=== PATIENT | male | born 1975 ===

== ENCOUNTER 2017-07-20 18:33 | Emergency (ER) | payer SELFPAY ==
--- NOTE | 2017-07-20 19:12 | ED PDOC ---
HPI: General Adult Time Seen by Provider: 07/20/17 18:50 Chief Complaint (Nursing): Abdominal Pain History Per: Patient Additional Complaint(s): Pt. states since Tuesday morning he's had cough, congestion, fever, non-bloody vomiting and diarrhea, crampy diffuse abdominal pain. Reports he last took Motrin at 1200 today without relief along with pepto-bismol. Denies chest pain, SOB, hemoptysis, melena, hematemesis, hematochezia, BRBPR, sick contacts, recent travel. Past Medical History Reviewed: Historical Data, Nursing Documentation, Vital Signs Vital Signs: Last Vital Signs Temp 101.1 F H 07/20/17 18:46 Pulse 101 H 07/20/17 18:46 Resp 18 07/20/17 18:46 BP 120/79 07/20/17 18:46 Pulse Ox 100 07/20/17 19:16 - Medical History PMH: Anxiety, Depression, Hypercholesterolemia - Surgical History Surgical History: No Surg Hx - Family History Family History: States: No Known Family Hx - Immunization History Hx Tetanus Toxoid Vaccination: Yes (2011) Hx Influenza Vaccination: No Hx Pneumococcal Vaccination: No - Home Medications Home Medications: Ambulatory Orders Medication Instructions Recorded Acetaminophen/Codeine Phosph 1 tab PO Q6H PRN #20 tab 06/04/14 [Acetaminophen/Codeine 300 mg-15 mg] Cephalexin [Keflex] 500 mg PO BID #14 cap 06/06/15 Cephalexin [Keflex] 500 mg PO TID #21 tab 10/02/15 Ibuprofen [Motrin] 600 mg PO Q6 PRN #15 tab 10/02/15 Tobramycin 0.3% [Tobrex 0.3% Ophth 1 drop OD Q4 #1 bottle 05/05/17 Soln] - Allergies Allergies/Adverse Reactions: Allergies Allergy/AdvReac Type Severity Reaction Status Date / Time No Known Allergies Allergy Verified 07/20/17 18:42 Review of Systems ROS Statement: Except As Marked, All Systems Reviewed And Found Negative Constitutional: Positive for: Fever Respiratory: Positive for: Cough Gastrointestinal: Positive for: Nausea, Vomiting, Abdominal Pain, Diarrhea Physical Exam - Reviewed Nursing Documentation Reviewed: Yes Vital Signs Reviewed: Yes - Physical Exam Appears: Positive for: Well, Non-toxic, No Acute Distress Head Exam: Positive for: ATRAUMATIC, NORMAL INSPECTION, NORMOCEPHALIC Skin: Positive for: Normal Color, Warm. Negative for: Rash Eye Exam: Positive for: EOMI, Normal appearance, PERRL ENT: Positive for: Normal ENT Inspection. Negative for: Pharyngeal Erythema, Tonsillar Exudate, Tonsillar Swelling Neck: Positive for: Normal, Painless ROM Cardiovascular/Chest: Positive for: Regular Rate, Rhythm Respiratory: Positive for: CNT, Normal Breath Sounds Gastrointestinal/Abdominal: Positive for: Normal Exam, Bowel Sounds, Soft. Negative for: Tenderness Back: Positive for: Normal Inspection Extremity: Positive for: Normal ROM Neurologic/Psych: Positive for: Alert, Oriented. Negative for: Aphasia, Facial Droop - ECG O2 Sat by Pulse Oximetry: 100 - Progress ED Course And Treament: Labs ordered. Tylenol 975mg PO, IV NS bolus x 1, zofran 4mg IV ordered. Disposition - Clinical Impression Clinical Impression: Fever - Patient ED Disposition Is Patient to be Admitted: Transfer of Care (Signed out to Jenise BARNEY pending labs and final disposition.) - Disposition Disposition Time: 20:00 Condition: STABLE Forms: [employer] (Slovak)
[2017-07-20] MEDS ORDERED: Sodium Chloride 0.9% 1,000 ML IV STA (19:15)
[2017-07-20 20:09] LABS: VENOUS BLOOD GAS BASE EXCESS -0.6 mmol/L (0.0-2.0); VENOUS BLOOD GAS PCO2 43 mmHg (40-60); VENOUS BLOOD PH 7.37 (7.32-7.43)
[2017-07-20 20:26] LABS: BASO % 0.3 % (0.0-2.0); EOS # 0.3 K/uL (0.0-0.7); EOS % 2.8 % (0.0-4.0); HEMATOCRIT 44.9 % (35.0-51.0); LYMPH # 1.1 K/uL (1.0-4.3); MEAN CELL VOLUME 85.9 fl (80.0-94.0); MEAN CORPUSCULAR HEMOGLOBIN 28.8 pg (27.0-31.0); MEAN CORPUSCULAR HGB CONC 33.5 g/dL (33.0-37.0); MEAN PLATELET VOLUME 8.1 fl (7.2-11.7); MONO # 0.8 K/uL (0.0-0.8); MONO % 8.3 % (0.0-10.0); NEUT % 76.6 % (50.0-75.0); RBC URINE 1 /hpf (0-3); RED CELL DISTRIBUTION WIDTH 13.7 % (11.5-14.5); URINE BILIRUBIN NEGATIVE (NEGATIVE); URINE BLOOD NEGATIVE (NEGATIVE); URINE COLOR YELLOW (YELLOW); URINE GLUCOSE (UA) NEG (Normal); URINE KETONE NEGATIVE (NEGATIVE); URINE LEUKOCYTE ESTERASE NEG Leu/uL (Negative); URINE PROTEIN 100 mg/dL (NEGATIVE); URINE UROBILINOGEN 0.2-1.0 mg/dL (0.2-1.0); WBC URINE 2 /hpf (0-5); WHITE BLOOD COUNT 9.2 K/uL (4.8-10.8)
[2017-07-20 20:44] LABS: ALB/GLOB RATIO 1.4 (1.0-2.1); ALKALINE PHOSPHATASE 84 U/L (38-126); ALT/SGPT 99 U/L (21-72); AST/SGOT 53 U/L (17-59); BILIRUBIN,TOTAL 1.1 mg/dl (0.2-1.3); BLOOD UREA NITROGEN 11 mg/dl (9-20); CALCIUM 8.8 mg/dL (8.4-10.2); CARBON DIOXIDE 23 mmol/L (22-30); CHLORIDE 103 mmol/L (98-107); GFR AFRICAN-AMERICAN > 60; GLUCOSE,RANDOM 120 mg/dL (75-110); LIPASE 56 U/L (23-300); POTASSIUM 3.5 MMOL/L (3.6-5.0); SODIUM 134 mmol/l (132-148); TOTAL PROTEIN 7.8 G/DL (6.3-8.2)
[2017-07-20 21:21] VITALS: BP 135/84; PULSE 91; RESP 17; TEMP 98.4; O2SAT 99
--- NOTE | 2017-07-20 21:31 | ED PDOC ---
- Laboratory Results Result Diagrams: 07/20/17 20:15 07/20/17 20:15 - ECG O2 Sat by Pulse Oximetry: 99 - Progress ED Course And Treament: Case endorsed to remote mortgage underwriter from Ethan BARNEY pending labs, re-eval 21:40 Patient states he is feeling better. Patient educated on findings, discharged with rx ibuprofen, flonase, promethazine DM. Advised fluids, rest. Follow up PMD 2-3 days. Return precautions given. Disposition - Clinical Impression Clinical Impression: Fever, Viral illness - POA Present On Arrival: None - Disposition Referrals: [facility] [Outside] Disposition: Routine/Home Disposition Time: 21:41 Condition: IMPROVED Prescriptions: Fluticasone Nasal [Flonase] 1 actuation NS BID #1 bottle Ibuprofen [Motrin Tab] 1 tab PO Q6 PRN #20 tab PRN Reason: Fever >100.4 F Promethazine DM [Phenergan DM Syrup] 5 ml PO Q6 PRN #1 bottle PRN Reason: Cough Instructions: Viral Syndrome (ED) Print Language: GREENLANDIC
== END 2017-07-20 22:02 | disposition home or self-care (01) ==
LOC: H.ER 18:33
DX: B34.9 Viral infection, unspecified (principal); E78.00 Pure hypercholesterolemia, unspecified; F32.9 Major depressive disorder, single episode, unspecified; F41.9 Anxiety disorder, unspecified
CPT/HCPCS: 80053; 81003; 82803; 83690; 85025; 87040; 87804; 96374; 99283; J2405; J7040